=== PATIENT | female | born 1930 | race Caucasian/White ===

== ENCOUNTER 2021-09-03 10:57 | Emergency (ER) | payer OTHER, MEDICAID ==
[~2021-09-03] VITALS: Ht 165.1 cm; Wt 54.4 kg
[~2021-09-03 10:57] MED LIST: ASPI-1393 PO; CEL20 PO; DICY10CA13 PO; LEVO25TA7 PO; LOSA100T3 PO; METF1000 PO; MIRA25TA PO; OMEP20CA15 PO; SIMV40TA2 PO; VITD2000 PO
[2021-09-03 11:08] VITALS: BP_SYST 128; BP_SYST 146
[2021-09-03] MEDS ORDERED: BACI15OI13 TP (12:12)
[2021-09-03] MEDS ORDERED: BACITRACIN 1 GM OINT TP ONE (12:17)
[2021-09-03 12:36] VITALS: BP_SYST 146
== END 2021-09-03 12:36 | disposition home or self-care (01) ==
LOC: SED 10:57
DX: S50.812A Abrasion of left forearm, initial encounter (principal); E11.9 Type 2 diabetes mellitus without complications; Z88.0 Allergy status to penicillin; Z79.899 Other long term (current) drug therapy; W22.8XXA Striking against or struck by other objects, initial encounter; Y93.89 Activity, other specified; Y92.89 Other specified places as the place of occurrence of the external cause; Y99.8 Other external cause status
CPT/HCPCS: 99282; 99283